=== PATIENT | female | born 1985 | race Two or more races ===

== ENCOUNTER 2018-08-20 19:06 | Emergency (ER) | payer OTHER ==
[2018-08-20] MEDS ORDERED: MECLIZINE HCL 25 MG TABLET PO ONE (19:44)
[2018-08-20] MEDS ORDERED: ONDANSETRON 4 MG TAB.RAPDIS PO ONE (19:44)
--- NOTE | 2018-08-20 19:46 | ER Document Report ---
ED Medical Screen (RME) - General Chief Complaint: Dizziness Stated Complaint: DIZZINESS Time Seen by Provider: 08/20/18 19:40 Notes: 33-year-old female patient reports an episode of feeling dizzy 1 week ago when she bent over to picket [employer] something and then stood back up quickly feeling lightheaded and dizzy. It did resolve. She had similar episodes again today when she got up out of bed trying to stand up to walk. She does have a little bit of headache, continues to be a little nauseous. She did have one episode of diarrhea today. She also has had pain in her upper abdomen today. I have greeted and performed a rapid initial assessment of this patient. A comprehensive ED assessment and evaluation of the patient, analysis of test results and completion of the medical decision making process will be conducted by additional ED providers. TRAVEL OUTSIDE OF THE [place] IN LAST 30 DAYS: No - Related Data Allergies/Adverse Reactions: ampicillin Allergy (Verified 08/20/18 19:08) Past Medical History - Social History Chew tobacco use (# tins/day): No Drug Abuse: None Renal/ Medical History: Reports: Hx Peritoneal Dialysis Physical Exam - Vital signs Vitals: Temp Pulse Resp BP Pulse Ox 98.5 F 92 16 130/80 H 100 08/20/18 19:29 08/20/18 19:29 08/20/18 19:29 08/20/18 19:29 08/20/18 19:29 Course - Vital Signs Vital signs: Temp Pulse Resp BP Pulse Ox 98.5 F 92 16 130/80 H 100 08/20/18 19:29 08/20/18 19:29 08/20/18 19:29 08/20/18 19:29 08/20/18 19:29
[2018-08-20 20:16] LABS: APPEARANCE,URINE SLIGHTLY-CLOUDY; BILIRUBIN,URINE NEGATIVE (NEGATIVE); COLOR,URINE YELLOW; GLUCOSE, URINE NEGATIVE (NEGATIVE); KETONES,URINE NEGATIVE (NEGATIVE); LEUKOCYTE ESTERASE,URINE SMALL (NEGATIVE); NITRITE,URINE NEGATIVE (NEGATIVE); PROTEIN,URINE NEGATIVE (NEGATIVE); URINE SPECIFIC GRAVITY 1.006; UROBILINOGEN,URINE NEGATIVE mg/dL (<2.0)
[2018-08-20 20:18] LABS: ABSOLUTE BASOPHILS # (AUTO) 0.1 10^3/uL (0.0-0.2); ABSOLUTE EOSINOPHILS # (AUTO) 0.3 10^3/uL (0.0-0.6); ABSOLUTE LYMPHOCYTES (AUTO) 1.6 10^3/uL (0.5-4.7); ABSOLUTE MONOCYTES (AUTO) 0.4 10^3/uL (0.1-1.4); ABSOLUTE NEUT (AUTO) 8.8 10^3/uL (1.7-8.2); BASOPHILS % (AUTO) 0.5 % (0-2); HEMATOCRIT 47.2 % (36.0-47.0); HEMOGLOBIN 16.1 g/dL (12.0-15.5); LYMPHOCYTES % (AUTO) 14.5 % (13-45); MEAN CORPUSCULAR HEMOGLOBIN 30.4 pg (27.0-33.4); MEAN CORPUSCULAR HGB CONC 34.2 g/dL (32.0-36.0); MEAN CORPUSCULAR VOLUME 89 fl (80-97); PLATELET COUNT 189 10^3/uL (150-450); RED BLOOD COUNT 5.31 10^6/uL (3.72-5.28); RED CELL DISTRIBUTION WIDTH 12.5 % (11.5-14.0); TOTAL CELLS COUNTED % (AUTO) 100 %; WHITE BLOOD COUNT 11.2 10^3/uL (4.0-10.5)
[2018-08-20 20:23] LABS: ALANINE AMINOTRANSFERASE 28 U/L (9-52); ALBUMIN 4.9 g/dL (3.5-5.0); ALKALINE PHOSPHATASE 65 U/L (38-126); ANION GAP 12 (5-19); ASPARTATE AMINO TRANSFERASE 17 U/L (14-36); BILIRUBIN,DIRECT 0.2 mg/dL (0.0-0.4); BILIRUBIN,TOTAL 0.8 mg/dL (0.2-1.3); BLOOD UREA NITROGEN 7 mg/dL (7-20); CALCIUM 9.8 mg/dL (8.4-10.2); CARBON DIOXIDE 22 mmol/L (22-30); CHLORIDE 107 mmol/L (98-107); GLUCOSE 95 mg/dL (75-110); LIPASE 30.1 U/L (23-300); POTASSIUM 4.1 mmol/L (3.6-5.0); SODIUM 140.7 mmol/L (137-145); TOTAL PROTEIN 7.5 g/dL (6.3-8.2)
--- NOTE | 2018-08-20 21:17 | ER Document Report ---
ED General - General Chief Complaint: Dizziness Stated Complaint: DIZZINESS Time Seen by Provider: 08/20/18 19:40 Notes: Patient is a 33-year-old female without chronic medical problems who presents to the emergency department complaining of an episode of feeling dizzy 1 week ago when she bent over to last picker something and then stood back up quickly feeling lightheaded and dizzy. It did resolve. She had similar episodes again today when she got up out of bed trying to stand up to walk. She denies any symptoms have occurred since that time. Patient states that she has been losing weight intentionally over the past 1.5 years and wonders if being on a calorie deficit could contribute to her symptoms. She currently denies any symptoms at the time of my assessment. She denies any headache, weakness, numbness, confusion, nausea or vomiting. No diarrhea. She has not seen her general physician regarding today's concerns. Denies any chest pain or shortness of breath. No syncope. TRAVEL OUTSIDE OF THE [place] IN LAST 30 DAYS: No - Related Data Allergies/Adverse Reactions: ampicillin Allergy (Verified 08/20/18 19:08) Past Medical History - General Information source: Patient - Social History Smoking Status: Current Every Day Smoker Cigarette use (# per day): Yes - 1/2 pack/day Chew tobacco use (# tins/day): No Smoking Education Provided: Yes - Smoking cessation counseling was provided for 4 minutes at the bedside Frequency of alcohol use: None Drug Abuse: None Lives with: Family Family History: Reviewed & Not Pertinent Patient has suicidal ideation: No Patient has homicidal ideation: No Renal/ Medical History: Reports: Hx Peritoneal Dialysis Review of Systems - Review of Systems Notes: Constitutional: Negative for fever. HENT: Negative for sore throat. Eyes: Negative for visual changes. Cardiovascular: Negative for chest pain. Positive for episodic lightheadedness Respiratory: Negative for shortness of breath. Gastrointestinal: Negative for abdominal pain, vomiting or diarrhea. Genitourinary: Negative for dysuria. Musculoskeletal: Negative for back pain. Skin: Negative for rash. Neurological: Negative for headaches, weakness or numbness. 10 point ROS negative except as marked above and in HPI. Physical Exam - Vital signs Vitals: Temp Pulse Resp BP Pulse Ox 98.5 F 92 16 130/80 H 100 08/20/18 19:29 08/20/18 19:29 08/20/18 19:29 08/20/18 19:29 08/20/18 19:29 Interpretation: Normal Notes: PHYSICAL EXAMINATION: GENERAL: Well-appearing, well-nourished and in no acute distress. HEAD: Atraumatic, normocephalic. EYES: Pupils equal round and reactive to light, extraocular movements intact, sclera anicteric, conjunctiva are normal. ENT: nares patent, oropharynx clear without exudates. Moderately dry mucous membranes. NECK: Normal range of motion, supple without lymphadenopathy LUNGS: Breath sounds clear to auscultation bilaterally and equal. No wheezes r ales or rhonchi. HEART: Regular rate and rhythm without murmurs ABDOMEN: Soft, nontender, normoactive bowel sounds. No guarding, no rebound. No masses appreciated. EXTREMITIES: Normal range of motion, no pitting or edema. No cyanosis. NEUROLOGICAL: Face symmetric. Tongue protrudes midline. Extraocular motions intact. Pupils are 2 mm and equally reactive. Normal speech, normal gait. 5 o ut of 5 strength in both the distal and proximal upper and lower extremities bilaterally. Sensation is grossly intact throughout. Finger to nose testing normal. Pronator drift normal. PSYCH: Normal mood, normal affect. SKIN: Warm, Dry, normal turgor, no rashes or lesions noted. Course - Re-evaluation Re-evalutation: 08/20/18 21:15 Patient presents with intermittent episodes of positional lightheadedness when going from a sitting to standing position. Patient denies any symptoms at the time of my assessment. Vitals within normal limits. Labs unremarkable. Neurologic exam completely benign. No vestibular symptoms. Nothing to suggest cerebellar infarction. Finger to nose, heel to fontana and ambulate in all normal. Suspect that the patient likely is having positional lightheadedness secondary to being on a continued calorie deficit as she reports that she has been dieting for approximately 1 year and that her symptoms seem to resolve after eating or drinking fluids. At this time will discharge with return precautions and follow-up recommendations. Verbal discharge instructions given a the bedside and opportunity for questions given. Medication warnings reviewed. Patient is in agreement with this plan and has verbalized understanding of return precautions and the need for primary care follow-up in the next 24-72 hours. - Vital Signs Vital signs: Temp Pulse Resp BP Pulse Ox 98.2 F 93 20 118/74 99 01/26/19 21:23 08/20/18 21:23 08/20/18 21:23 08/20/18 21:23 08/20/18 21:23 - Laboratory Result Diagrams: 08/20/18 19:55 08/20/18 19:55 Laboratory results interpreted by me: 08/20/18 08/20/18 19:55 19:55 WBC 11.2 H RBC 5.31 H Hgb 16.1 H Hct 47.2 H Absolute Neutrophils 8.8 H Urine Blood SMALL H Ur Leukocyte Esterase SMALL H Discharge - Discharge Clinical Impression: Lightheadedness, Orthostasis Condition: Good Disposition: HOME, SELF-CARE Additional Instructions: You were seen today for lightheadedness/dizziness. The exact cause of your symptoms is unclear but your workup here is reassuring without any concerning findings. Please follow closely with your primary care physician in the next 1- 3 days. Return if you pass out, have additional episodes of lightheadedness, develop weakness/numbness, have persistent vomiting, chest pain, shortness of breath or any other symptoms that are concerning to you
[2018-08-20 21:34] VITALS: BP 118/74
== END 2018-08-20 21:31 | disposition home or self-care (01) ==
LOC: ER 19:06
DX: R42 Dizziness and giddiness (principal); F17.210 Nicotine dependence, cigarettes, uncomplicated; Z71.6 Tobacco abuse counseling; Z88.0 Allergy status to penicillin
CPT/HCPCS: 99284; 36415; 83690; 84703; 85025; 80053; 81001; S0119

== ENCOUNTER 2019-06-29 20:05 | Emergency (ER) | payer OTHER ==
[2019-06-29] MEDS ORDERED: CEPHALEXIN 500 MG CAPSULE PO ONE (21:38)
--- NOTE | 2019-06-29 21:38 | ER Document Report ---
HPI - HPI Time Seen by Provider: 06/29/19 21:22 Pain Level: 3 Context: Patient is a 34-year-old female who presents the emergency department with a chief complaint of swelling to the right side of her face. Patient states that she does have pain on the medial aspect of her eye and it extends down her zygomatic bone. Denies any trauma. She denies any fever. Patient denies rubbing it. She also states that she has some tearing. Denies vision changes, globe pain, or any trauma or scratch to her eye. - ROS Systems Reviewed and Negative: Yes All other systems reviewed and negative - CONSTITUTIONAL Constitutional: DENIES: Fever, Chills - EENT EENT: REPORTS: Eye problems - swelling to right eyelid. DENIES: Sore Throat - REPRODUCTIVE LMP: now Reproductive: DENIES: : - DERM Skin Problems: Rash - right cheek area and eyelid Past Medical History - Social History Smoking Status: Current Every Day Smoker Frequency of alcohol use: None Drug Abuse: None Family History: Reviewed & Not Pertinent Patient has suicidal ideation: No Patient has homicidal ideation: No Renal/ Medical History: Reports: Hx Peritoneal Dialysis Vertical Provider Document - CONSTITUTIONAL Agree With Documented VS: Yes Exam Limitations: No Limitations General Appearance: No Apparent Distress - INFECTION CONTROL TRAVEL OUTSIDE OF THE [place] IN LAST 30 DAYS: No - HEENT HEENT: Atraumatic, Normocephalic, PERRLA. negative: Conjuctival Injection, Pharyngeal Exudate, Pharyngeal Tenderness, Pharyngeal Erythema, Tympanic Membrane Red, Tympanic Membrane Bulging Notes: Mild edema noted to right eye lid and right cheek. - NECK Neck: Normal Inspection - RESPIRATORY Respiratory: Breath Sounds Normal, No Respiratory Distress - CARDIOVASCULAR Cardiovascular: Regular Rate Pulses: Normal: Radial - MUSCULOSKELETAL/EXTREMETIES Musculoskeletal/Extremeties: FROM - NEURO Level of Consciousness: Awake, Alert, Appropriate - DERM Integumentary: Warm, Dry, Rash - See HEENT exam Course - Re-evaluation Re-evalutation: 06/29/19 Patient appears to have mild cellulitis noted to her right cheek just below her eye. She also has mild cellulitis to her right eyelid. A very low suspicion for necrotizing fasciitis. I will start the patient on Keflex. Strict return precautions were given. Patient asked for imaging and I educated the patient that due to her clinical presentation of her eye not being completely closed shut, diagnostic imaging would be inappropriate at this time. She verbalized understanding and was thankful for the antibiotics and care. Follow-up precautions were given. Verbal discharge instructions were given to the patient. They verbalized understanding. They are stable for discharge. - Vital Signs Vital signs: Temp Pulse Resp BP Pulse Ox 98.4 F 76 18 130/83 H 06/29/19 21:18 06/29/19 21:18 06/29/19 21:18 06/29/19 21:18 Discharge - Discharge Clinical Impression: Cellulitis Qualifiers: Site of cellulitis: face Qualified Code(s): L03.211 - Cellulitis of face Condition: Stable Disposition: HOME, SELF-CARE Additional Instructions: You are seen today in the emergency department for swelling to the right side of your face. You are being placed on antibiotics. Please follow-up with your primary care provider in regards to this issue. If it is not better in 3 to 4 days, please return to the emergency department. Can take Tylenol 1000 mg and ibuprofen 600 mg every 6 hours as needed for your pain. Prescriptions: Cephalexin Monohydrate [Keflex 500 mg Capsule] 500 mg PO Q6H 7 Days #28 capsule Forms: Return to Work Referrals: [facility] [Provider Group] - Follow up in 3-5 days
[2019-06-29 22:15] VITALS: BP 134/90
== END 2019-06-29 22:15 | disposition home or self-care (01) ==
LOC: ER 20:05
DX: L03.211 Cellulitis of face (principal); H00.033 Abscess of eyelid right eye, unspecified eyelid; F17.200 Nicotine dependence, unspecified, uncomplicated
CPT/HCPCS: 99283

== ENCOUNTER 2019-07-22 11:43 | Emergency (ER) | payer OTHER ==
[2019-07-22] MEDS ORDERED: IBUPROFEN 800 MG TABLET PO ONE (12:36)
--- NOTE | 2019-07-22 12:40 | ER Document Report ---
HPI - HPI Patient complains to provider of: right eye, ethmoid pain Time Seen by Provider: 07/22/19 12:29 Onset: This morning Onset/Duration: Sudden Severity: Moderate Pain Level: 3 Context: 34-year-old female presents to the emergency department with complaints to her right medial canthus that started this morning when she woke up. Denies vision problems. Denies trauma. Denies fever vomiting diarrhea. Reports she was here last month and treated with Keflex for the same thing. She reports the symptoms seem to go away but they returned this morning. She has not taken anything for the pain. Patient's right eye is watering. Associated Symptoms: None Exacerbated by: Denies Relieved by: Denies Similar symptoms previously: Yes Recently seen / treated by doctor: No - REPRODUCTIVE Reproductive: DENIES: : Past Medical History - General Information source: Patient Last Menstrual Period: last month - Social History Smoking Status: Current Every Day Smoker Chew tobacco use (# tins/day): No Frequency of alcohol use: None Drug Abuse: None Occupation: school lunch manager Lives with: Family Family History: Reviewed & Not Pertinent Patient has suicidal ideation: No Patient has homicidal ideation: No - Medical History Medical History: Negative Surgical Hx: Negative Vertical Provider Document - CONSTITUTIONAL Agree With Documented VS: Yes Exam Limitations: No Limitations General Appearance: WD/WN, No Apparent Distress - INFECTION CONTROL TRAVEL OUTSIDE OF THE [place] IN LAST 30 DAYS: No - HEENT HEENT: Atraumatic, Normal ENT Exam, PERRLA. negative: Conjuctival Injection, Normocephalic, Pharyngeal Erythema, Tympanic Membrane Bulging Notes: denies dental pain, right ethmoid maxillary area tender to palpate no erythema no warmth no swelling - NECK Neck: Normal Inspection, Supple. negative: Lymphadenopathy-Left, Lymphadenopathy-Right - RESPIRATORY Respiratory: Breath Sounds Normal, No Respiratory Distress. negative: Rales, Rhonchi, Wheezing - GI/ABDOMEN Gastrointestinal: Abdomen Non-Tender - MUSCULOSKELETAL/EXTREMETIES Musculoskeletal/Extremeties: MAEW, FROM, Non-Tender - NEURO Level of Consciousness: Awake, Alert, Appropriate Motor/Sensory: No Motor Deficit - DERM Integumentary: Warm, Dry, No Rash Course - Re-evaluation Re-evalutation: 07/22/19 12:38 34-year-old female presents emergency department with complaints of right eye pain that started this morning when she woke up. Patient's pointing to her right medial canthus. No erythema no swelling no warmth. Reports she was here last month for the same thing they gave her Keflex and symptoms went away. 07/22/19 13:11 X-ray negative for sinus infection. Patient was instructed on Motrin for the pain with decongestant. She was instructed to follow-up with a primary care provider for continued pain or return here for concerns. She verbalized understanding to all instructions. [facility]-Ray 07/22/19 12:36 IMPRESSION: NO FOREIGN BODY OR FRACTURE. NO PLAIN RADIOGRAPHIC EVIDENCE FOR SINUS DISEASE. - Vital Signs Vital signs: Temp Pulse Resp BP Pulse Ox 98.3 F 81 16 146/89 H 100 07/22/19 12:25 07/22/19 12:25 07/22/19 12:25 07/22/19 12:25 07/22/19 12:25 - Diagnostic Test Radiology reviewed: Reports reviewed Discharge - Discharge Clinical Impression: ETHMOID PAIN Condition: Stable Disposition: HOME, SELF-CARE Instructions: Ibuprofen (General) ([facility]) Additional Instructions: *You have been evaluated for pain to your right medial canthus Your x-ray was negative for sinusitis *Take medication as prescribed for your pain *Follow-up with a primary care provider within 1 week for recheck *Return to ED for worsening condition change, needs, increased pain difficulty with your vision concerns Prescriptions: Ibuprofen [Motrin 800 mg Tablet] 800 mg PO TID #15 tablet Referrals: ANAYELI LAST MD [Primary Care Provider] - Follow up in 1 week
--- NOTE | 2019-07-22 12:59 | RADIOLOGY REPORT (SQ) ---
EXAM DESCRIPTION: SANDOVAL VIEW SINUS COMPLETED DATE/TIME: 07/22/2019 12:49 pm REASON FOR STUDY: ethmoid pain COMPARISON: None. NUMBER OF VIEWS: One view, water's projection. TECHNIQUE: Images of the paranasal sinuses acquired. LIMITATIONS: None. FINDINGS: ORBITS: No fracture. No foreign body. SINUSES: No mucosal thickening. No air fluid levels. FACIAL BONES: No fracture. OTHER: No other significant finding. IMPRESSION: NO FOREIGN BODY OR FRACTURE. NO PLAIN RADIOGRAPHIC EVIDENCE FOR SINUS DISEASE. TECHNICAL DOCUMENTATION: JOB ID: [id number] [employer]- All Rights Reserved Reading location - IP/workstation name: [email or web address]
[2019-07-22 13:48] VITALS: BP 126/81
== END 2019-07-22 13:50 | disposition home or self-care (01) ==
LOC: ER 11:43
DX: H57.11 Ocular pain, right eye (principal); R51 Headache; F17.200 Nicotine dependence, unspecified, uncomplicated
CPT/HCPCS: 70210; 99283